=== PATIENT | male | born 1985 | race Caucasian/White ===

== ENCOUNTER 2020-09-03 18:55 | Emergency (ER) | payer SELFPAY ==
[~2020-09-03] VITALS: Ht 198.1 cm; Wt 95.0 kg
[2020-09-03 19:17] LABS: BASOPHILS % (AUTO) 1 % (0-1); EOSINOPHILS % (AUTO) 3 % (1-7); LYMPHOCYTES % (AUTO) 40 % (22-44); MEAN CORPUSCULAR HEMOGLOBIN 32.7 pg (27.5-34.5); MEAN CORPUSCULAR HGB CONC 34.2 g/dL (33.2-36.2); MONOCYTES % (AUTO) 11 % (2-9); NEUTROPHILS % (AUTO) 46 % (42-75); PLATELET COUNT 241 x10^3/uL (130-400); RED BLOOD COUNT 5.05 x10^6/uL (4.38-5.82)
[2020-09-03 19:18] LABS: MD NO
[2020-09-03 19:29] LABS: ALANINE AMINOTRANSFERASE 73 U/L (12-78); ALBUMIN 3.7 g/dL (3.4-5.0); ANION GAP 8 mmol/L (5-15); CALCIUM 8.3 mg/dL (8.5-10.1); CHLORIDE 110 mmol/L (98-107); CREATININE 0.82 mg/dL (0.7-1.3)
[2020-09-03 19:31] LABS: ALKALINE PHOSPHATASE 111 U/L (45-117); BILIRUBIN,TOTAL 0.9 mg/dL (0.2-1.0); TOTAL PROTEIN 7.3 g/dL (6.4-8.2)
[2020-09-03 19:37] LABS: SALICYLATE LEVEL < 1.7 mg/dL (2.8-20.0)
--- NOTE | 2020-09-03 19:38 | NUR ---
PT PLACED ON LEGAL HOLD BY KELSIE MACHADO AFTER PT MADE SI AND HI STATMENTS AFTER HE WAS DETAINED BY KELSIE MACHADO ON TRAFFIC STOP. PT STATED "HE WAS JUST ANGRY AND SAID HE IS NOT HI OR SI THAT HE WAS JUST TALKING TRASH" PT STATED "I HAVE A DRINK PROBLEM AND THAT IS THE ONLY ISSUE"
--- NOTE | 2020-09-03 19:38 | NUR ---
PT PLACED IN 2 POINT RETRAINTS PER [employer] PD. PT STATED "THAT HE WILL RUN SOON WE LET HIM OUT OF RESTAINTS AND THAT HE HAS ESCAPPED PAR [facility] BEFORE"
--- NOTE | 2020-09-03 19:55 | NUR ---
COOPERATIVE WITH STAFF WITH PLEASE AND THANK YOU. AWAITING PROVIDER ORDER
--- NOTE | 2020-09-03 21:10 | NUR ---
PROVIDER DISCHARGED PT, PT HANDED CLOTHES WITH 2 POINT RESTAINT REMOVED. PT AMBULATED WITHOUT DIFFICULTY. PT A/O X4 WITH UNLABORED BREATHING
[2020-09-03 21:15] VITALS: BP 129/74
== END 2020-09-03 21:17 | disposition home or self-care (01) ==
LOC: ED 19:25
DX: F39 Unspecified mood [affective] disorder (principal); R45.851 Suicidal ideations; F10.220 Alcohol dependence with intoxication, uncomplicated; R45.1 Restlessness and agitation; Y90.0 Blood alcohol level of less than 20 mg/100 ml
CPT/HCPCS: 36415; 80053; 80299; 80320; 80329; 85025; 99285; G0480